=== PATIENT | female | born 1965 | race Caucasian/White ===

== ENCOUNTER 2018-11-01 19:42 | Emergency (ER) | payer BC ==
[2018-11-01] MEDS ORDERED: Acetaminophen/HYDROcodone 325-10 MG Tab PO ONE (19:43)
--- NOTE | 2018-11-01 20:10 | EDM.PDOC ---
ED HPI GENERAL MEDICAL PROBLEM - General Chief Complaint: Neck Problem Stated Complaint: NECK PAIN [id number] Time Seen by Provider: 11/01/18 20:06 Source of Information: Reports: Patient History Limitations: Reports: No Limitations - History of Present Illness INITIAL COMMENTS - FREE TEXT/NARRATIVE: gives h/o neck pain had MRI 2 years ago and had surgical appt that was deemed nothing surgical. had epidural that lasted a year. all was well till recently with mother getting bladder cancer and work stress and neck/shoulder spasm worsened. can't sleep. been taking motrin 800mg Q3-4. Treatments DIRECTOR TRIAL: Reports: NSAIDS Neck Pain Score (Numeric/FACES): 8 - Related Data Allergies Allergy/AdvReac Type Severity Reaction Status Date / Time cefazolin sodium [From [facility]] Allergy Swelling Verified 11/01/18 19:59 Home Meds: Home Meds Albuterol Sulfate [Albuterol Sulfate HFA] 2 puff INH Q4HR PRN 08/05/13 [History] Calcium Carbonate/Vitamin D3 [Calcium 600 + Vit D 400] 1 tab PO 08/05/13 [ History] Fluticasone/Salmeterol [Advair 250-50 Diskus] 1 puff INH BID 08/05/13 [History] Ibuprofen [Motrin] 08/05/13 [History] Seagrove-3/DHA/Epa/Fish Oil [Seagrove-3 Fish Oil 1,000 MG Sfgl] 1 cap PO DAILY [History] Past Medical History - Past Surgical History Musculoskeletal Surgical History: Reports: Other (See Below) Other Musculoskeletal Surgeries/Procedures:: neck pain Social & Family History - Family History Family Medical History: Noncontributory - Recreational Drug Use Recreational Drug Use: No ED ROS GENERAL - Review of Systems Review Of Systems: ROS reveals no pertinent complaints other than HPI. ED EXAM, UPPER BACK/NECK PAIN - Physical Exam Exam: See Below Exam Limited By: No Limitations General Appearance: Alert, WD/WN, Mild Distress, Other (crying) Eye Exam: Bilateral Eye: PERRL (pupils ER @ 4mm) Ears Exam: Hearing Grossly Normal Throat/Mouth Exam: Normal Voice, No Airway Compromise Head Exam: Atraumatic Neck Exam: Paraspinous Muscle Tender, Tenderness, Tender Lateral, Other ( trapezius). No: Spinous Processes Tender, Tender Midline Nexus Criteria: No: Posterior, Midline Cervical Tenderness, Evidence of Intoxication, Altered Level of Consciousness, Focal Neurological Deficit, Painful Distraction Injuries Cardiovascular/Respiratory: Regular Rate, Rhythm, No Respiratory Distress GI/Abdominal: Soft, Non-Tender Neurologic: No Motor/Sensory Deficits, Alert, Oriented x 3 Psychiatric: Tearful Skin Exam: Normal Color, Warm/Dry Lymphatic: No Adenopathy Course - Vital Signs Text/Narrative:: re-exam; better s/p Rx Last Recorded V/S: Last Vital Signs Temp 36.3 C 11/01/18 20:52 Pulse 87 11/01/18 20:52 Resp 18 11/01/18 20:52 BP 135/86 11/01/18 20:52 Pulse Ox 94 L 11/01/18 20:52 - Orders/Labs/Meds Orders: Active Orders 24 hr Category Date Time Status Orphenadrine [Norflex] Med 11/01/18 20:15 Active 60 mg IM Q12H Medication Orders Orphenadrine Citrate (Norflex) 60 mg IM Q12H LINN Last Admin: 11/01/18 20:12 Dose: 60 mg Meds: Medications Generic Name Dose Route Start Last Admin Trade Name Freq PRN Reason Stop Dose Admin Orphenadrine Citrate 60 mg 11/01/18 20:15 11/01/18 20:12 Norflex IM 60 mg Q12H LINN Administration Discontinued Medications Generic Name Dose Route Start Last Admin Trade Name Freq PRN Reason Stop Dose Admin Fentanyl 25 mcg 11/01/18 20:40 11/01/18 20:47 Sublimaze IVPUSH 11/01/18 20:41 25 mcg ONETIME ONE Administration Fentanyl 25 mcg 11/01/18 21:08 11/01/18 21:17 Sublimaze IVPUSH 11/01/18 21:09 25 mcg ONETIME ONE Administration Ondansetron HCl 4 mg 11/01/18 20:40 11/01/18 20:45 Zofran IV 11/01/18 20:41 4 mg ONETIME ONE Administration Departure - Departure Time of Disposition: 21:43 Disposition: Home, Self-Care 01 Condition: Good Clinical Impression: Cervical paraspinal muscle spasm - Discharge Information Instructions: Muscle Cramps and Spasms, [id number] Forms: ED Department Discharge Additional Instructions: 1) avoid bending lifting straining 2) try ice or heat to sore areas 3) see clinic Sunday for possible MRI SCAN and ORTHO REFERRAL rx given flexeril 10mg tid orn spasm x 12 vicodin 5/325mg bid prn pain x 6 - My Orders Last 24 Hours: My Active Orders 11/01/18 20:15 Orphenadrine [Norflex] 60 mg IM Q12H - Assessment/Plan Last 24 Hours: My Active Orders 11/01/18 20:15 Orphenadrine [Norflex] 60 mg IM Q12H
[2018-11-01] MEDS ORDERED: Ondansetron 4 MG/2 ML SDV IV ONE (20:40)
[2018-11-01] MEDS ORDERED: fentaNYL 100 MCG/2 ML SDV IVPUSH ONE ×2 (20:40→21:08)
[2018-11-01] MEDS ORDERED: Acetaminophen/HYDROcodone 325-10 MG Tab ONE (21:44)
== END 2018-11-01 21:42 | disposition home or self-care (01) ==
LOC: DL.ED 19:42
DX: M62.830 Muscle spasm of back (principal); Z88.8 Allergy status to other drugs, medicaments and biological substances; Z79.899 Other long term (current) drug therapy
CPT/HCPCS: 96372; 96374; 96375; 99283; A9270; J2360; J2405; J3010

== ENCOUNTER 2022-02-27 10:58 | Emergency (ER) | payer BC ==
[2022-02-27] MEDS ORDERED: Albuterol/Ipratropium 3.0-0.5 MG/3 ML Neb Soln INH ONE (12:08)
[2022-02-27] MEDS ORDERED: cefTRIAXone 2 GM Vial IV ONE (12:30)
[2022-03-24 12:15] LABS: CHLORIDE,CL 103 mmol/L (98-107); SODIUM,NA 140 mmol/L (136-145)
[2022-03-24 12:16] LABS: ESTIMATED GFR 90 mL/min (>=60)
[2022-03-24 12:38] LABS: PTT,PARTIAL THROMBOPLSTIN TIME 23.4 SEC (22.0-34.0)
== END 2022-02-27 13:50 | disposition home or self-care (01) ==
LOC: DL.ED 10:58
DX: J44.1 Chronic obstructive pulmonary disease with (acute) exacerbation (principal); N30.00 Acute cystitis without hematuria; E66.9 Obesity, unspecified
CPT/HCPCS: 36415; 71046; 80053; 81001; 81003; 83880; 84484; 85025; 85379; 85610; 85730; 87086; 87088; 87186; 96372; 99285

== ENCOUNTER 2025-03-21 11:45 | Emergency (ER) | payer BC ==
[2025-03-21] MEDS: Triamcinolone Acetonide 40 MG/ML 1 ML SDV IARTIC ONE (12:15)
== END 2025-03-21 12:29 | disposition home or self-care (01) ==
LOC: DL.ED 11:45
DX: S86.911A Strain of unspecified muscle(s) and tendon(s) at lower leg level, right leg, initial encounter (principal); Z88.8 Allergy status to other drugs, medicaments and biological substances; Z79.899 Other long term (current) drug therapy; X58.XXXA Exposure to other specified factors, initial encounter
CPT/HCPCS: 20610; 99283; J2003; J3301